=== PATIENT | male | born 1995 | race Caucasian/White ===

== ENCOUNTER 2020-09-04 06:29 | Observation (INO) ==
[2020-09-04 07:29] LABS: Basophils % 0.4 %; Eosinophils # 0.3 K/mcL (0.0-0.6); Eosinophils % 3.4 %; Hematocrit 42.1 % (37.5-50.1); Hemoglobin 14.3 g/dL (12.9-16.9); Immature Granulocytes % 0.1 % (0-4); Lymphocytes # 2.5 K/mcL (0.6-4.6); Mean Corpuscular Hemoglobin 30.5 pg (28.0-33.3); Mean Corpuscular Volume 89.8 fL (83.0-100.0); Mean Platelet Volume 10.5 fL (9.4-12.4); Monocytes # 0.7 K/mcL (0.0-1.3); Monocytes % 8.9 %; Neutrophils # 4.8 K/mcL (1.6-8.9); Platelet Count 282 K/mcL (140-400); Red Blood Count 4.69 M/mcL (4.19-5.50); Red Cell Distribution Width 12.7 % (11.5-14.5); Segmented Neutrophils % 57.2 %; White Blood Count 8.3 K/mcL (4.3-11.1)
[2020-09-04 07:59] LABS: BUN/Creatinine Ratio 11 (6-26); Blood Urea Nitrogen 10 mg/dL (6-20); Calcium 8.9 mg/dL (8.6-10.3); Carbon Dioxide 23 mEq/L (23-29); Chloride 107 mEq/L (98-107); Glucose 100 mg/dL (70-105); Osmolality,Calculated 287 (280-300); Potassium 3.8 mEq/L (3.5-5.1); Sodium 139 mEq/L (136-145); eGFR For African Americans > 60 (> 60); eGFR For Non-African Americans > 60 (> 60)
[2020-09-04 08:05] LABS: Troponin I 0.05 ng/mL (< 0.04)
[2020-09-04] MEDS ORDERED: Aspirin 325 MG TABLET PO ONE (08:23)
[2020-09-04] MEDS ORDERED: Ondansetron 4 MG/2 ML VIAL IVP PRN (08:28)
[2020-09-04] MEDS ORDERED: Naloxone 0.4 MG/ML INJ IVP PRN (08:28)
[2020-09-04] MEDS ORDERED: Perflutren Lipid Microsphere 1.3 ML in 0.9 % Sodium Chloride 8.7 ML IVP PRN (08:34)
[2020-09-04] MEDS ORDERED: Nitroglycerin 0.4 MG TAB.SUBL SL PRN (08:53)
[2020-09-04] MEDS: Acetaminophen 325 MG TABLET PO PRN (17:53)
[2020-09-05 03:11] LABS: Basophils % 0.6 %; Eosinophils # 0.4 K/mcL (0.0-0.6); Eosinophils % 6.1 %; Hemoglobin 14.6 g/dL (12.9-16.9); Immature Granulocytes % 0.3 % (0-4); Lymphocytes # 2.5 K/mcL (0.6-4.6); Lymphocytes % 35.9 %; Mean Corpuscular HGB Conc 32.4 g/dL (31.6-35.5); Mean Corpuscular Hemoglobin 29.8 pg (28.0-33.3); Mean Corpuscular Volume 91.8 fL (83.0-100.0); Mean Platelet Volume 10.9 fL (9.4-12.4); Monocytes # 0.7 K/mcL (0.0-1.3); Monocytes % 9.3 %; Neutrophils # 3.4 K/mcL (1.6-8.9); Platelet Count 285 K/mcL (140-400); Red Cell Distribution Width 12.8 % (11.5-14.5); Segmented Neutrophils % 47.8 %; White Blood Count 7.1 K/mcL (4.3-11.1)
[2020-09-05 03:30] LABS: BUN/Creatinine Ratio 15 (6-26); Blood Urea Nitrogen 12 mg/dL (6-20); Calcium 9.3 mg/dL (8.6-10.3); Carbon Dioxide 24 mEq/L (23-29); Chloride 105 mEq/L (98-107); Glucose 111 mg/dL (70-105); Osmolality,Calculated 286 (280-300); Potassium 3.8 mEq/L (3.5-5.1); Sodium 138 mEq/L (136-145); eGFR For African Americans > 60 (> 60); eGFR For Non-African Americans > 60 (> 60)
[2020-09-05] MEDS ORDERED: Aspirin 81 MG TAB.CHEW PO SCH (09:00)
[2020-09-05] MEDS: Acetaminophen 325 MG TABLET PO PRN (14:38)
[2020-09-05 15:35] VITALS: BP 114/67
== END 2020-09-05 17:43 | disposition home or self-care (01) ==
LOC: 3BNU 06:29 → EMEROOARM 06:29 → 3BNU 09:41
PROVIDERS: ADMIT Family Medicine; ATTEND Family Medicine